=== PATIENT | female | born 1960 | race Caucasian/White ===

== ENCOUNTER → 2017-02-22 | Outpatient (CLI) | payer OTHER | LOC: CIMAGING 10:29 | DX: Z12.31 Encounter for screening mammogram for malignant neoplasm of breast (principal) | CPT/HCPCS: G0202 ==

== ENCOUNTER 2017-08-19 16:49 | Emergency (ER) | payer MEDICAID, OTHER ==
[2017-08-19 16:59] VITALS: BP 141/87; PULSE 52; RESP 18; TEMP 99.1; O2SAT 96
--- NOTE | 2017-08-19 17:29 | EDPHY ---
H & P Time Seen by Provider: 08/19/17 17:05 HPI/ROS: This patient complains of cough that is dry and hacking, occasionally productive of sputum over the past 2 weeks. She states that her symptoms started to improve until a few days ago when she had increasing frequency and intensity of the coughing. She reports some wheezing associated with this and has some relief from her albuterol inhaler that she takes for her cough variant asthma. She also reports compliance with her Advair and uses this once a day. She does not have a spacer for her albuterol inhaler. She arrived by private vehicle with her spouse for further evaluation. ROS: Constitutional: No high fevers or chills. No other complaints except mild fatigue. HEENT: She had nasal congestion the 1st half this illness but none now. No sore throat. No ear pain. Pulmonary: No pleuritic pain. No hemoptysis. No respiratory distress. Cardiovascular: No lightheadedness. No leg swelling or calf pain. GI: No nausea vomiting Integumentary: No skin rash 7 point ROS is otherwise negative. Past Medical/Surgical History: Fibromyalgia Cough variant asthma Chronic back pain Depression Smoking Status: Former smoker Physical Exam: Physical Exam Vital signs are normal. General: No acute distress HEENT: Nose: Clear bilaterally. No sinus tenderness to percussion. Ears: External canals and tympanic membranes are clear with no erythema or abnormal findings bilaterally. Oropharynx: No erythema or exudates. No dysphonia. No drooling or stridor. Eyes: Pupils equal and react to light. Extraocular motions are intact. Neck: Supple with no meningismus. No lymphadenopathy Lungs: Mild rhonchi at the right base. No rales. New currently no wheezing. With cough she has faint expiratory wheeze. Cardiac: Regular rate and rhythm with no murmur gallop or rub no JVD. No peripheral edema. Skin: No rash or pallor. Neuro: Alert with no focal deficits noted. Initial differential diagnosis: URI with cough variant asthma, acute bronchitis -bacterial versus viral, doubt pneumonia Constitutional: Initial Vital Signs Temperature (C) 37.3 C 08/19/17 16:57 Heart Rate 52 L 08/19/17 16:57 Respiratory Rate 18 08/19/17 16:57 Blood Pressure 141/87 H 08/19/17 16:57 O2 Sat (%) 96 08/19/17 16:57 O2 Delivery Mode Room Air Allergies/Adverse Reactions: latex [Latex] Allergy (Severe, Verified 09/19/12 15:43) ampicillin [Ampicillin] Allergy (Intermediate, Verified 09/19/12 15:43) Rash erythromycin base [Erythromycin Base] Allergy (Mild, Verified 09/19/12 15:43) Hives diphenhydramine HCl [From Benadryl] Allergy (Verified 03/06/14 16:09) Penicillins Allergy (Verified 03/05/14 17:47) Home Medications: Medication Instructions Recorded Chlorzoxazone 500 mg PO QID 03/05/14 Dextroamphetamine/Amphetamine 30 mg PO DAILY 03/05/14 [Adderall Xr 30 mg Capsule] Docusate Sodium [Colace 100 MG (*)] 100 mg PO HS 03/05/14 Docusate Sodium [Colace 100 MG (*)] 200 mg PO DAILY 03/05/14 Methocarbamol [Robaxin 500 mg (*)] 1,000 mg PO HS 03/05/14 Metoprolol Succinate Xr [Toprol Xl 25 mg PO DAILY 03/05/14 25 mg (*)] OXcarbazepine [Trileptal 300mg (*)] 600 mg PO BID 03/05/14 Zolpidem Tartrate [Ambien 5MG (*)] 5 mg PO HS 03/05/14 Diazepam [Valium 5 MG (*)] 5 mg PO Q8 PRN #0 tab 03/12/14 Oxycodone Ir [Oxy Ir 5 mg (RX)] 5 - 15 mg PO Q4 PRN #0 tab 03/12/14 Polyethylene Glycol 3350 [Miralax 17 gm PO DAILY PRN #0 pkt 03/12/14 17 gm (*)] Pregabalin [Lyrica 75mg (*)] 75 mg PO BID #0 cap 03/12/14 Venlafaxine HCl [Venlafaxine 75MG 75 mg PO BID #0 tab 03/12/14 (*)] morphINE SR [MS Contin/Oramorph SR 30 mg PO BID #10 tab 03/15/14 30 mg (*)] Albuterol Hfa Anes Only [Proair 2 puffs IH Q4 PRN #1 mdi 08/19/17 Hfa Icu (*)] Azithromycin [Zithromax] 250 mg PO DAILY #6 tab 08/19/17 Benzonatate [Tessalon Pearles (RX)] 100 - 200 mg PO TID PRN #20 cap 08/19/17 MDM/Departure - [facility] ED Course/Re-evaluation: Discussion/medical decision making: Patient with current Marcus no fever, normal vital signs including a room air O2 sat of 96%. No rales. Not think she has pneumonia. Similarly, find no evidence of significant acute asthma. Symptoms are most comp consistent with bronchitis. Given the duration of her illness-2 weeks along with rhonchi in history of asthma, will cover with a macrolide for potential bacterial pathogen. I counseled her regarding this. She will continue her albuterol and Advair increasing her Advair to 2 times a day, adding Zithromax antibiotic and Tessalon Perles. Also provided a spacer for her albuterol. She understands need to return should she develop any significant worsening of symptoms despite treatment plan - Depart Disposition: Home, Routine, Self-Care Clinical Impression: Acute bronchitis Qualifiers: Bronchitis organism: unspecified organism Qualified Code(s): J20.9 - Acute bronchitis, unspecified Condition: Good Instructions: Acute Bronchitis (ED) Additional Instructions: Diagnosis: Acute bronchitis Plan: Use spacer with her albuterol-2 puffs every 4 hours as needed for cough, wheeze or shortness of breath Continue your Advair Start the Zithromax antibiotic Tessalon Perles in addition if needed as a cough suppressant Follow up with primary care physician for any ongoing symptoms despite treatment plan Return for any significant worsening despite the treatment plan Prescriptions: Albuterol Hfa Anes Only [Proair Hfa Icu (*)] 2 puffs IH Q4 PRN #1 mdi PRN Reason: Wheezing Azithromycin [Zithromax] 250 mg PO DAILY #6 tab Referrals: Sivakumar Abbott DO [Primary Care Provider] - As per Instructions
== END 2017-08-19 17:35 | disposition home or self-care (01) ==
LOC: CED 16:49
DX: J20.9 Acute bronchitis, unspecified (principal); J45.909 Unspecified asthma, uncomplicated; Z87.891 Personal history of nicotine dependence

== ENCOUNTER 2019-02-13 17:27 | Emergency (ER) | payer MEDICAID ==
[2019-02-13 17:55] VITALS: BP 132/82
--- NOTE | 2019-02-13 18:15 | EDPHY ---
H & P Time Seen by Provider: 02/13/19 17:40 HPI/ROS: CHIEF COMPLAINT: Left index finger redness and swelling History by patient HISTORY OF PRESENT ILLNESS: 58-year-old [id number] woman presents complaining of swelling and redness in her left index finger which has been going on for around a month but seems to gotten more red. She denies any pus draining from it but states this started as a cracked area of skin on the tip of her finger and then she developed surrounding redness around the nail. She says it is painful when she hits things with it. She denies smoking cigarettes , crack, or methamphetamines. She also complains of cracking scan in her right thumb. She denies any fever chills nausea vomiting. This is 1st time she has sought medical attention for. REVIEW OF SYSTEMS: As in HPI, and all other systems reviewed and are negative Smoking Status: Former smoker Constitutional: Initial Vital Signs Temperature (C) 37 C 02/13/19 17:49 Heart Rate 92 02/13/19 17:49 Respiratory Rate 14 02/13/19 17:49 Blood Pressure 132/82 H 02/13/19 17:49 O2 Sat (%) 96 02/13/19 17:49 O2 Delivery Mode Room Air Allergies/Adverse Reactions: latex [Latex] Allergy (Severe, Verified 02/13/19 17:38) ampicillin [Ampicillin] Allergy (Intermediate, Verified 02/13/19 17:38) Rash erythromycin base [Erythromycin Base] Allergy (Mild, Verified 02/13/19 17:38) Hives diphenhydramine HCl [From Benadryl] Allergy (Verified 02/13/19 17:38) Penicillins Allergy (Verified 02/13/19 17:38) Home Medications: Medication Instructions Recorded Dextroamphetamine/Amphetamine 30 mg PO DAILY 03/05/14 [Adderall Xr 30 mg Capsule] Methocarbamol [Robaxin 500 mg (*)] 1,000 mg PO HS 03/05/14 OXcarbazepine [Trileptal 300mg (*)] 600 mg PO BID 03/05/14 Zolpidem Tartrate [Ambien 5MG (*)] 5 mg PO HS 03/05/14 Venlafaxine HCl [Venlafaxine 75MG 75 mg PO BID #0 tab 03/12/14 (*)] morphINE SR [MS Contin/Oramorph SR 30 mg PO BID #10 tab 03/15/14 30 mg (*)] Albuterol Hfa Anes Only [Proair 2 puffs IH Q4 PRN #1 mdi 08/19/17 Hfa Icu (*)] Celebrex 02/13/19 Cephalexin 500 mg PO BID #20 capsule 02/13/19 Estradiol 02/13/19 Flexeril 10 MG (*) 02/13/19 Imitrex 02/13/19 Movantik 02/13/19 Venlafaxine 37.5MG (*) 02/13/19 Wellbutrin 100mg (*) 02/13/19 MDM/Departure - Depart Disposition: Home, Routine, Self-Care Clinical Impression: Cellulitis of finger, right Condition: Good Instructions: Cellulitis (ED) Additional Instructions: You were seen by Dr. Nikole Milligan today. Please soak your fingers in warm soapy water 3 times daily. Take antibiotics, Keflex, as prescribed. I recommend taking probiotics in between doses of antibiotics to prevent diarrhea. I recommend applying Vanicream to her hands at least twice daily for dryness and cracking and to soothe them and speed healing. Please follow up with her primary care physician Dr. Abbott next week, after you finished the antibiotics if her symptoms persist. Return for any worsening or new concerns. Prescriptions: Cephalexin 500 mg PO BID #20 capsule Referrals: Sivakumar Abbott DO [Primary Care Provider] - As per Instructions
== END 2019-02-13 18:25 | disposition home or self-care (01) ==
LOC: CED 17:27
DX: L03.011 Cellulitis of right finger (principal)
CPT/HCPCS: 99283-ER